=== PATIENT | male | born 1970 | race Asian ===

== ENCOUNTER 2022-01-31 14:21 | Inpatient (IN) ==
[2022-01-31] MEDS ORDERED: Ondansetron ODT 4 MG TAB.RAPDIS SL ONE (16:34)
[2022-01-31] MEDS ORDERED: *HR* HYDROmorphone (PF) 1 MG/ML SYRINGE IM ONE ×2 (16:34→18:25)
[2022-01-31] MEDS ORDERED: Orphenadrine 60 MG/2 ML VIAL IM ONE (16:34)
[2022-01-31 18:20] LABS: Bacteria,Urine Few per hpf (None-Few); Bilirubin,Urine Negative (Negative); Blood,Urine Moderate (Negative); Clarity,Urine Clear (Clear); Color,Urine Yellow (Yellow); Glucose,Urine (UA) Normal (Normal); Hyaline Casts,Urine Few per lpf (None Seen); Ketones,Urine 20 mg/dL (Negative); Leukocyte Esterase,Urine Negative (Negative); Mucus,Urine Few per lpf (None-Few); Nitrite,Urine Negative (Negative); Protein,Urine 30 mg/dL (Neg-Trace); RBC,Urine 15-30 per hpf (0-3); Specific Gravity,Urine > 1.030 (1.010-1.025); Urobilinogen,Urine Normal (Normal)
[2022-01-31] MEDS ORDERED: Dexamethasone Sodium Phos/PF 10 MG/ML VIAL PO ONE (18:26)
[2022-01-31] MEDS ORDERED: diazePAM 10 MG/2 ML SYRINGE IM ONE (18:26)
[2022-01-31] MEDS ORDERED: Ketorolac 30 MG/ML VIAL IM ONE (19:16)
[2022-02-01] MEDS ORDERED: *HR* HYDROmorphone (PF) 1 MG/ML SYRINGE IVP ONE (02:10)
[2022-02-01] MEDS ORDERED: Ketorolac 30 MG/ML VIAL IVP ONE (02:10)
[2022-02-01 02:31] LABS: Basophils % 0.2 %; Hemoglobin 17.7 g/dL (12.9-16.9); Immature Granulocytes % 0.3 % (0-4); Lymphocytes # 0.7 K/mcL (0.6-4.6); Lymphocytes % 5.8 %; Mean Corpuscular Hemoglobin 31.1 pg (28.0-33.3); Mean Corpuscular Volume 91.2 fL (83.0-100.0); Mean Platelet Volume 8.8 fL (9.4-12.4); Monocytes # 0.1 K/mcL (0.0-1.3); Monocytes % 0.6 %; Platelet Count 214 K/mcL (140-400); Red Cell Distribution Width 12.4 % (11.5-14.5); Segmented Neutrophils % 93.1 %; White Blood Count 12.9 K/mcL (4.3-11.1)
[2022-02-01 02:41] LABS: Prothrombin Time 11.6 Seconds (9.4-12.1)
[2022-02-01 02:44] LABS: Activated Partial Thrombo Time 36.5 Seconds (26.0-36.0)
[2022-02-01 02:50] LABS: BUN/Creatinine Ratio 29 (6-26); Blood Urea Nitrogen 31 mg/dL (6-20); Calcium 9.7 mg/dL (8.6-10.3); Carbon Dioxide 26 mEq/L (23-29); Chloride 101 mEq/L (98-107); Glucose 164 mg/dL (70-105); Osmolality,Calculated 292 (280-300); Potassium 4.5 mEq/L (3.5-5.1); Sodium 136 mEq/L (136-145); eGFR For African Americans > 60 (> 60); eGFR For Non-African Americans > 60 (> 60)
[2022-02-01] MEDS ORDERED: Ondansetron 4 MG/2 ML VIAL IVP PRN (03:25)
[2022-02-01] MEDS ORDERED: Naloxone 0.4 MG/ML INJ IVP PRN (03:25)
[2022-02-01] MEDS ORDERED: Nicotine 14 MG PATCH.TD24 TD PRN (05:09)
[2022-02-01] MEDS ORDERED: predniSONE 20 MG TABLET PO ONE (09:21)
[2022-02-01] MEDS: tiZANidine 4 MG TABLET PO PRN (12:43)
[2022-02-01] MEDS: *HR* Heparin 5,000 UNIT/ML VIAL SQ SCH (17:54)
[2022-02-01] MEDS: Sennosides/Docusate Sodium TABLET PO SCH (20:28)
[2022-02-02] MEDS: *HR* Heparin 5,000 UNIT/ML VIAL SQ SCH ×2 (05:26→17:53)
[2022-02-02] MEDS ORDERED: *HR* OxyCODONE Immed Rel 5 MG TABLET PO PRN (09:17)
[2022-02-02] MEDS: predniSONE 20 MG TABLET PO SCH (09:30)
[2022-02-02] MEDS: tiZANidine 4 MG TABLET PO PRN ×2 (09:32→20:40)
[2022-02-02] MEDS: *HR* OxyCODONE Immed Rel 5 MG TABLET PO PRN ×2 (09:32→16:05)
[2022-02-02] MEDS: Sennosides/Docusate Sodium TABLET PO SCH ×2 (09:32→20:40)
[2022-02-02] MEDS: Ketorolac 30 MG/ML VIAL IVP SCH ×3 (09:33→17:52)
[2022-02-02] MEDS: Gabapentin 300 MG CAPSULE PO SCH ×2 (16:05→20:40)
[2022-02-03] MEDS: Ketorolac 30 MG/ML VIAL IVP SCH ×4 (00:22→17:09)
[2022-02-03 05:37] LABS: Basophils % 0.3 %; Eosinophils # 0.1 K/mcL (0.0-0.6); Eosinophils % 0.4 %; Hematocrit 43.4 % (37.5-50.1); Hemoglobin 14.8 g/dL (12.9-16.9); Immature Granulocytes % 0.4 % (0-4); Lymphocytes # 3.1 K/mcL (0.6-4.6); Lymphocytes % 22.8 %; Mean Corpuscular HGB Conc 34.1 g/dL (31.6-35.5); Mean Corpuscular Hemoglobin 31.4 pg (28.0-33.3); Mean Corpuscular Volume 91.9 fL (83.0-100.0); Mean Platelet Volume 9.4 fL (9.4-12.4); Monocytes # 1.1 K/mcL (0.0-1.3); Neutrophils # 9.2 K/mcL (1.6-8.9); Platelet Count 203 K/mcL (140-400); Red Blood Count 4.72 M/mcL (4.19-5.50); Red Cell Distribution Width 12.4 % (11.5-14.5); Segmented Neutrophils % 68.1 %; White Blood Count 13.5 K/mcL (4.3-11.1)
[2022-02-03] MEDS: *HR* Heparin 5,000 UNIT/ML VIAL SQ SCH ×2 (05:54→17:08)
[2022-02-03] MEDS: predniSONE 20 MG TABLET PO SCH (09:34)
[2022-02-03] MEDS: Gabapentin 300 MG CAPSULE PO SCH ×3 (09:34→21:30)
[2022-02-03] MEDS: Sennosides/Docusate Sodium TABLET PO SCH ×2 (09:34→21:30)
[2022-02-04] MEDS: Ketorolac 30 MG/ML VIAL IVP SCH ×2 (00:22→05:07)
[2022-02-04 03:50] LABS: Basophils % 0.2 %; Eosinophils % 0.4 %; Hematocrit 42.8 % (37.5-50.1); Hemoglobin 14.8 g/dL (12.9-16.9); Immature Granulocytes % 0.3 % (0-4); Lymphocytes # 2.6 K/mcL (0.6-4.6); Mean Corpuscular HGB Conc 34.6 g/dL (31.6-35.5); Mean Corpuscular Hemoglobin 30.8 pg (28.0-33.3); Mean Corpuscular Volume 89.2 fL (83.0-100.0); Mean Platelet Volume 8.8 fL (9.4-12.4); Monocytes # 0.9 K/mcL (0.0-1.3); Monocytes % 8.4 %; Neutrophils # 7.6 K/mcL (1.6-8.9); Platelet Count 185 K/mcL (140-400); Red Cell Distribution Width 12.4 % (11.5-14.5); Segmented Neutrophils % 67.7 %; White Blood Count 11.2 K/mcL (4.3-11.1)
[2022-02-04 04:10] LABS: BUN/Creatinine Ratio 33 (6-26); Blood Urea Nitrogen 29 mg/dL (6-20); Carbon Dioxide 26 mEq/L (23-29); Chloride 104 mEq/L (98-107); Glucose 97 mg/dL (70-105); Magnesium 2.1 mg/dL (1.6-2.6); Osmolality,Calculated 290 (280-300); Phosphorous 3.8 mg/dL (2.7-4.5); Sodium 137 mEq/L (136-145); eGFR For African Americans > 60 (> 60); eGFR For Non-African Americans > 60 (> 60)
[2022-02-04] MEDS: *HR* Heparin 5,000 UNIT/ML VIAL SQ SCH (05:07)
[2022-02-04] MEDS ORDERED: Lidocaine HCL 4 ML Topical Solution (Laryng-O-Jet Kit Sterile Pak) TP ONE (07:13)
[2022-02-04] MEDS ORDERED: *HR* FentaNYL (PF) 100 MCG/2 ML VIAL ONE (07:13)
[2022-02-04] MEDS ORDERED: *HR* Midazolam HCl 2 MG/2 ML VIAL ONE (07:13)
[2022-02-04] MEDS ORDERED: *HR* Propofol 200 MG/20 ML VIAL IVP ONE (07:14)
[2022-02-04] MEDS ORDERED: Lidocaine -MPF 2% 2 ML VIAL ONE (07:16)
[2022-02-04] MEDS ORDERED: *HR* Rocuronium Bromide 50 MG/5 ML VIAL ONE (07:16)
[2022-02-04] MEDS ORDERED: *HR* Succinylcholine 200 MG/10 ML VIAL IVP ONE (07:16)
[2022-02-04] MEDS ORDERED: *HR* Meperidine 25 MG/ML SYRINGE IVP PRN (07:24)
[2022-02-04] MEDS ORDERED: *HR* HYDROmorphone PF 0.5 MG/0.5 ML SYRINGE IVP PRN (07:24)
[2022-02-04] MEDS ORDERED: Ondansetron 4 MG/2 ML VIAL IVP PRN ×2 (07:24→11:05)
[2022-02-04] MEDS ORDERED: Albuterol 2.5 MG/3 ML NEBULIZER IH PRN (07:24)
[2022-02-04] MEDS ORDERED: Ringers Solution, Lactated 1,000 ML IVC SCH (07:45)
[2022-02-04] MEDS ORDERED: Vancomycin 1,000 MG VIAL ONE (07:49)
[2022-02-04] MEDS ORDERED: CeFAZolin Syr 2,000MG/20 ML 2,000 MG/20 ML SYRINGE IVPB ONE (08:00)
[2022-02-04] MEDS ORDERED: Polymyxin B Sulfate 500,000 UNIT, Sodium Chloride IRRigation 1,000 ML IR ONE (08:00)
[2022-02-04] MEDS ORDERED: Acetaminophen IV 1,000 MG/100 ML BAG IVPB ONE (08:46)
[2022-02-04] MEDS ORDERED: Ketamine HCL *QUVA* 50mg (1mL) SYRINGE ONE (08:47)
[2022-02-04] MEDS ORDERED: *HR* HYDROMORPHONE 2 MG/ML VIAL ONE (09:10)
[2022-02-04] MEDS ORDERED: Sugammadex Sodium 200 MG/2 ML VIAL IV ONE (09:30)
[2022-02-04] MEDS ORDERED: Naloxone 0.4 MG/ML INJ IVP PRN (11:05)
[2022-02-04] MEDS: *HR* HYDROcodone/Acet 5/325 mg TABLET PO PRN (12:27)
[2022-02-04] MEDS: Ringers Solution, Lactated 1,000 ML IVC SCH (12:28)
[2022-02-04] MEDS: CeFAZolin 2 GM/100 ML BAG IVPB SCH ×2 (16:53→23:14)
[2022-02-04] MEDS: Acetaminophen 325 MG TABLET PO PRN ×2 (17:00→23:13)
[2022-02-05] MEDS: polyethylene glycoL 3350 17 GM POWD.PACK PO PRN ×2 (00:07→21:04)
[2022-02-05] MEDS: *HR* HYDROcodone/Acet 5/325 mg TABLET PO PRN (04:50)
[2022-02-05 07:27] LABS: Hematocrit 40.7 % (37.5-50.1); Hemoglobin 14.2 g/dL (12.9-16.9); Mean Corpuscular HGB Conc 34.9 g/dL (31.6-35.5); Mean Corpuscular Hemoglobin 31.7 pg (28.0-33.3); Mean Corpuscular Volume 90.8 fL (83.0-100.0); Platelet Count 169 K/mcL (140-400); Red Blood Count 4.48 M/mcL (4.19-5.50); Red Cell Distribution Width 12.4 % (11.5-14.5); White Blood Count 13.8 K/mcL (4.3-11.1)
[2022-02-05 08:36] LABS: BUN/Creatinine Ratio 26 (6-26); Blood Urea Nitrogen 20 mg/dL (6-20); Calcium 8.8 mg/dL (8.6-10.3); Carbon Dioxide 27 mEq/L (23-29); Chloride 103 mEq/L (98-107); Glucose 97 mg/dL (70-105); Osmolality,Calculated 289 (280-300); Potassium 3.9 mEq/L (3.5-5.1); Sodium 138 mEq/L (136-145); eGFR For African Americans > 60 (> 60); eGFR For Non-African Americans > 60 (> 60)
[2022-02-05] MEDS ORDERED: predniSONE 20 MG TABLET PO SCH (09:00)
[2022-02-05] MEDS: *HR* OxyCODONE Immed Rel 5 MG TABLET PO PRN ×3 (09:23→21:54)
[2022-02-05] MEDS: Sennosides/Docusate Sodium TABLET PO PRN (21:04)
[2022-02-06] MEDS: *HR* OxyCODONE Immed Rel 5 MG TABLET PO PRN ×2 (04:41→09:03)
[2022-02-06 05:08] LABS: Hematocrit 42.7 % (37.5-50.1); Hemoglobin 14.1 g/dL (12.9-16.9); Mean Corpuscular Hemoglobin 30.5 pg (28.0-33.3); Mean Corpuscular Volume 92.4 fL (83.0-100.0); Mean Platelet Volume 8.9 fL (9.4-12.4); Platelet Count 169 K/mcL (140-400); Red Blood Count 4.62 M/mcL (4.19-5.50); Red Cell Distribution Width 12.5 % (11.5-14.5); White Blood Count 9.2 K/mcL (4.3-11.1)
[2022-02-06] MEDS: *HR* HYDROcodone/Acet 5/325 mg TABLET PO PRN (14:02)
[2022-02-06] MEDS: Sennosides/Docusate Sodium TABLET PO PRN (14:07)
[2022-02-06] MEDS: polyethylene glycoL 3350 17 GM POWD.PACK PO PRN (14:07)
[2022-02-06] MEDS: Acetaminophen 325 MG TABLET PO PRN (20:31)
[2022-02-06] MEDS: Ringers Solution, Lactated 1,000 ML IVC SCH (23:51)
[2022-02-07 07:01] VITALS: O2SAT 95
[2022-02-07] MEDS: *HR* HYDROcodone/Acet 5/325 mg TABLET PO PRN (09:03)
[2022-02-07 11:18] VITALS: BP 116/67; PULSE 60; TEMP 98.2
== END 2022-02-07 15:30 | DRG 517 ==
LOC: EMEROOARM 14:21 → 3BNU 14:21 → SUATTDRO 02-01 02:12 → 3BNU 02-01 03:15 → 4WAOSI 02-04 11:01
PROVIDERS: ADMIT Student in an Organized Health Care Education/Training Program; ATTEND Internal Medicine